=== PATIENT | male | born 1975 | race Caucasian/White ===

== ENCOUNTER 2017-08-05 11:29 | Emergency (ER) | payer OTHER ==
[2017-08-05 11:39] VITALS: BP 144/89; PULSE 96; RESP 20; TEMP 97.9
[2017-08-05] MEDS ORDERED: DIPH,PERTUS(ACELL)TETVAC-LF 0.5 ML VIAL IM ONE (11:47)
--- NOTE | 2017-08-05 11:55 | ED ---
Lower Extremity Injury HPI - General Chief Complaint: Extremity Injury, Lower Stated Complaint: Toe pain Time Seen by Provider: 08/05/17 11:41 Source: patient, RN notes reviewed Mode of arrival: ambulatory Limitations: no limitations - History of Present Illness Initial Comments: This is a 41-year-old male who presents to the emergency department with chief complaint of left great toe injury. Patient states that at 9 AM this morning, while at work, a part of a transmission to a semi fell onto his left foot. Patient complains of left great toe pain and a blood blister. He states that he does have difficulty bearing weight and ambulating but is able to do so by putting pressure on the opposite side of his foot. Patient states that he is not up-to-date with tetanus. Denies any other injury or trauma. Denies fever, chills, chest pain, shortness of breath, abdominal pain, nausea or vomiting, constipation or diarrhea, dysuria or hematuria, numbness or tingling, headache or vision changes. - Related Data Previous Rx's Medication Instructions Recorded Dicyclomine HCl [Bentyl] 20 mg PO QID PRN #15 tab 02/26/14 Allergies Allergy/AdvReac Type Severity Reaction Status Date / Time No Known Allergies Allergy Verified 08/05/17 11:39 Review of Systems ROS Statement: Those systems with pertinent positive or pertinent negative responses have been documented in the HPI. ROS Other: All systems not noted in ROS Statement are negative. Past Medical History Past Medical History: No Reported History History of Any Multi-Drug Resistant Organisms: None Reported Past Surgical History: No Surgical Hx Reported Past Psychological History: No Psychological Hx Reported Smoking Status: Current every day smoker Past Alcohol Use History: Occasional Past Drug Use History: None Reported General Exam - General Exam Comments Initial Comments: General: Awake and alert, well-developed; in no apparent distress. HEENT: Head atraumatic, normocephalic. Pupils are equal, round and reactive to light. Extraocular movements intact. Oropharynx moist without erythema or exudate. Neck: Supple. Normal ROM. Cardiovascular: Regular rate and rhythm. No murmurs, rubs or gallops. Chest symmetrical. Respiratory: Lungs clear to auscultation bilaterally. No wheezes, rales or rhonchi. Normal respiratory effort with no use of accessory muscles. Musculoskeletal: Limited range of motion of the left great toe due to pain. There is a draining blood blister dorsal aspect of left great toe. Sensation is intact. Pedal pulses are 2+ equal and palpable bilaterally. Skin: [place], warm and dry without rashes or lesions. Neurological: Alert and oriented x3. CN II-XII grossly intact. Speech is fluent and answers are appropriate. No focal neuro deficits. Psychiatric: Normal mood and affect. No overt signs of depression or anxiety noted. Limitations: no limitations Course Vital Signs 08/05/17 11:34 Temperature 97.9 F Pulse Rate 96 Respiratory 20 Rate Blood Pressure 144/89 O2 Sat by Pulse 99 Oximetry Medical Decision Making - Medical Decision Making This is a 41-year-old male who presents to the emergency department with chief complaint of left great toe injury. X-ray revealed a comminuted fracture of the distal phalanx left great toe. There is a draining blood blister at the dorsal surface of the great toe. This area was cleaned and a dressing was placed. Patient was made up-to-date with his tetanus vaccination. Toes were brent taped. Recommended rest, ice, elevation and Tylenol or Motrin as needed. Patient will be given an orthopedic referral. Patient's vital signs are stable and he is in no acute distress. He will be discharged home. He is in agreement with plan and voices understanding. All questions were answered. - Radiology Data Radiology results: report reviewed X-ray left foot impression: Mildly displaced comminuted fracture distal phalanx first digit. Disposition Clinical Impression: Fracture of toe Disposition: HOME SELF-CARE Condition: Good Instructions: Toe Fracture (ED) Additional Instructions: Rest, ice, elevate and take Tylenol or Motrin as needed. Please follow up with [facility] within 1-2 days. Please follow up with primary care provider within 1-2 days. Return to emergency department if symptoms should worsen or any concerns arise. Referrals: None,Stated [Primary Care Provider] - 1-2 days Mark Leo PAC [PHYSICIAN [facility]] - 1-2 days Time of Disposition: 12:38
--- NOTE | 2017-08-05 12:13 | XR ---
EXAMINATION TYPE: XR foot complete LT DATE OF EXAM: 08/05/2017 COMPARISON: NONE HISTORY: Pain TECHNIQUE: Three views are submitted. FINDINGS: There is a fracture of the distal phalanx first digit with mild displacement and mild comminution. Arthropathy of the first MTP joint with hypertrophic changes. Hammertoe deformities are seen. There a re calcaneal spurs. IMPRESSION: 1. Mildly displaced comminuted fracture distal phalanx first digit.
== END 2017-08-05 12:48 | disposition home or self-care (01) ==
LOC: EC 11:29
DX: S92.422A Displaced fracture of distal phalanx of left great toe, initial encounter for closed fracture (principal); F17.200 Nicotine dependence, unspecified, uncomplicated; Z23 Encounter for immunization; W20.8XXA Other cause of strike by thrown, projected or falling object, initial encounter; Y92.69 Other specified industrial and construction area as the place of occurrence of the external cause; Y99.0 Civilian activity done for income or pay
CPT/HCPCS: 90471; 90715; 99283